=== PATIENT | male | born 1950 | race Caucasian/White ===

== ENCOUNTER 2016-07-08 07:24 | Outpatient (CLI) | payer OTHER ==
[2016-07-08 12:38] LABS: BASOPHILS # (AUTO) 0.2 10^3/uL (0.0-0.1); BASOPHILS % (AUTO) 1.3 %; EOSINOPHILS # (AUTO) 0.1 10^3/uL (0.0-0.7); EOSINOPHILS % (AUTO) 0.9 %; HCT - HEMATOCRIT 43.3 % (42.0-52.0); LYMPHOCYTES # (AUTO) 2.4 10^3/uL (1.5-3.5); MEAN CORPUSCULAR HEMOGLOBIN 33.1 pg (27.0-31.0); MEAN CORPUSCULAR HGB CONC 34.7 g/dL (32.0-36.0); MEAN CORPUSCULAR VOLUME 95.4 fL (80.0-94.0); MEAN PLATELET VOLUME 8.5 fL (7.4-11.4); MONOCYTES # (AUTO) 1.5 10^3/uL (0.0-1.0); MONOCYTES % (AUTO) 11.3 %; NEUTROPHILS % (AUTO) 68.5 %; RED BLOOD COUNT 4.54 10^6/uL (4.70-6.10); RED CELL DISTRIBUTION WIDTH 12.3 % (12.0-15.0); UNCORRECTED WHITE BLOOD COUNT 13.1 x10^3/uL; WHITE BLOOD COUNT 13.1 x10^3/uL (4.8-10.8)
[2016-07-08 12:54] LABS: ALBUMIN/GLOBULIN RATIO 1.3 (1.0-2.2); BILIRUBIN,TOTAL 0.5 mg/dL (0.2-1.0); BUN - BLOOD UREA NITROGEN 13 mg/dL (6-20); CALCIUM 9.1 mg/dL (8.5-10.3); CARBON DIOXIDE - CO2 28 mmol/L (21-32); CHLORIDE 100 mmol/L (101-111); CHOLESTEROL 155 mg/dL; CREATININE 0.7 mg/dL (0.6-1.2); GFR - MDRD 114 (>89); GLUCOSE 108 mg/dL (70-100); HDL CHOLESTEROL 52 mg/dL; LDL/HDL RATIO 1.5 (<3.6); POTASSIUM 4.4 mmol/L (3.5-5.0); SODIUM 136 mmol/L (135-145); TOTAL PROTEIN 7.2 g/dL (6.7-8.2); TRIGLYCERIDES 123 mg/dL; VLDL CHOLESTEROL 25 mg/dL
[2016-07-08 14:39] LABS: HEMOGLOBIN A1C 0.56 g/dL
== END 2016-07-08 07:25 | disposition home or self-care (01) ==
LOC: LAB.WCP 07:24
PROVIDERS: ATTEND Family Medicine
DX: I10 Essential (primary) hypertension (principal); R74.8 Abnormal levels of other serum enzymes; Z79.899 Other long term (current) drug therapy; E78.5 Hyperlipidemia, unspecified; E74.39 Other disorders of intestinal carbohydrate absorption; Z12.5 Encounter for screening for malignant neoplasm of prostate; F41.8 Other specified anxiety disorders
CPT/HCPCS: 36415; 80053; 80061; 83036; 84153; 84443; 85025

== ENCOUNTER 2016-09-09 10:43 | Outpatient (CLI) | payer OTHER | END 2016-09-09 10:44 | disposition home or self-care (01) | DX: M79.89 Other specified soft tissue disorders (principal) ==

== ENCOUNTER 2017-06-09 09:29 | Outpatient (CLI) | payer OTHER ==
--- NOTE | 2017-06-09 19:33 | XRAY Report ---
DATE OF SERVICE: 06/09/2017 TWO VIEW CHEST: 06/09/2017 CLINICAL INDICATION: Bronchitis, cough. COMPARISON: 07/09/2015 Frontal and lateral views of the chest demonstrate a normal cardiac silhouette. The lungs are hyperinflated, compatible with COPD. No focal consolidation, effusion, or pneumothorax is present. IMPRESSION: Hyperinflation, but no evidence of acute cardiopulmonary disease. TD: 06/09/2017 20:33
== END 2017-06-09 09:30 | disposition home or self-care (01) ==
LOC: DI 09:29
PROVIDERS: ATTEND Family Medicine
DX: J20.9 Acute bronchitis, unspecified (principal)
CPT/HCPCS: 71046

== ENCOUNTER 2018-03-23 07:15 | Outpatient (CLI) | payer MEDICARE, OTHER ==
[2018-03-23 19:50] LABS: BASOPHILS # (AUTO) 0.1 10^3/uL (0.0-0.1); BASOPHILS % (AUTO) 1.5 %; EOSINOPHILS # (AUTO) 0.1 10^3/uL (0.0-0.7); EOSINOPHILS % (AUTO) 1.2 %; HGB - HEMOGLOBIN 15.4 g/dL (14.0-18.0); LYMPHOCYTES # (AUTO) 1.5 10^3/uL (1.5-3.5); LYMPHOCYTES % (AUTO) 18.5 %; MEAN CORPUSCULAR HEMOGLOBIN 33.1 pg (27.0-31.0); MEAN CORPUSCULAR HGB CONC 34.4 g/dL (32.0-36.0); MEAN CORPUSCULAR VOLUME 96.1 fL (80.0-94.0); MEAN PLATELET VOLUME 8.3 fL (7.4-11.4); MONOCYTES # (AUTO) 0.9 10^3/uL (0.0-1.0); MONOCYTES % (AUTO) 10.8 %; NEUTROPHILS # (AUTO) 5.6 10^3/uL (1.5-6.6); PLT - PLATELET COUNT 253 10^3/uL (130-450); RED BLOOD COUNT 4.65 10^6/uL (4.70-6.10); WHITE BLOOD COUNT 8.2 x10^3/uL (4.8-10.8)
[2018-03-23 20:22] LABS: ALBUMIN 3.9 g/dL (3.2-5.5); ALBUMIN/GLOBULIN RATIO 1.2 (1.0-2.2); ALKALINE PHOSPHATASE 50 IU/L (42-121); ALT ALANINE AMINOTRANSFERASE 53 IU/L (10-60); AST ASPARTATE AMINOTRANSFERASE 50 IU/L (10-42); BILIRUBIN,TOTAL 0.8 mg/dL (0.2-1.0); BUN - BLOOD UREA NITROGEN 11 mg/dL (6-20); CALCIUM 9.2 mg/dL (8.5-10.3); CARBON DIOXIDE - CO2 28 mmol/L (21-32); CHLORIDE 93 mmol/L (101-111); CHOL/HDL RATIO 2.9 (<5.0); CHOLESTEROL 146 mg/dL; CREATININE 0.7 mg/dL (0.6-1.2); GFR - MDRD 113 (>89); GLUCOSE 96 mg/dL (70-100); HDL CHOLESTEROL 51 mg/dL; LDL CHOLESTEROL,CALCULATED 73 mg/dL; LDL/HDL RATIO 1.4 (<3.6); SODIUM 133 mmol/L (135-145); TOTAL PROTEIN 7.1 g/dL (6.7-8.2); VLDL CHOLESTEROL 22 mg/dL
== END 2018-03-23 07:16 | disposition home or self-care (01) ==
LOC: LAB.WCP 07:15
PROVIDERS: ATTEND Family Medicine
DX: R74.8 Abnormal levels of other serum enzymes (principal); E78.5 Hyperlipidemia, unspecified; Z12.5 Encounter for screening for malignant neoplasm of prostate; I10 Essential (primary) hypertension; F41.8 Other specified anxiety disorders
CPT/HCPCS: 36415; 80053; 80061; 84443; 85025; G0103; 83721; 84153

== ENCOUNTER 2018-11-07 08:00 | Outpatient (CLI) | payer MEDICARE, OTHER ==
[2018-11-07 14:48] LABS: BASOPHILS # (AUTO) 0.1 10^3/uL (0.0-0.1); BASOPHILS % (AUTO) 1.7 %; EOSINOPHILS # (AUTO) 0.1 10^3/uL (0.0-0.7); EOSINOPHILS % (AUTO) 1.6 %; HGB - HEMOGLOBIN 16.7 g/dL (14.0-18.0); LYMPHOCYTES # (AUTO) 2.1 10^3/uL (1.5-3.5); LYMPHOCYTES % (AUTO) 25.2 %; MEAN CORPUSCULAR HEMOGLOBIN 31.2 pg (27.0-31.0); MEAN CORPUSCULAR HGB CONC 33.8 g/dL (32.0-36.0); MEAN CORPUSCULAR VOLUME 92.2 fL (80.0-94.0); MEAN PLATELET VOLUME 8.9 fL (7.4-11.4); MONOCYTES # (AUTO) 0.9 10^3/uL (0.0-1.0); MONOCYTES % (AUTO) 10.3 %; NEUTROPHILS # (AUTO) 5.2 10^3/uL (1.5-6.6); NEUTROPHILS % (AUTO) 61.2 %; PLT - PLATELET COUNT 267 10^3/uL (130-450); RED BLOOD COUNT 5.35 10^6/uL (4.70-6.10); RED CELL DISTRIBUTION WIDTH 13.8 % (12.0-15.0); WHITE BLOOD COUNT 8.5 x10^3/uL (4.8-10.8)
[2018-11-07 14:49] LABS: ALBUMIN 4.2 g/dL (3.2-5.5); ALBUMIN/GLOBULIN RATIO 1.2 (1.0-2.2); ALKALINE PHOSPHATASE 66 IU/L (42-121); ALT ALANINE AMINOTRANSFERASE 26 IU/L (10-60); AST ASPARTATE AMINOTRANSFERASE 25 IU/L (10-42); BILIRUBIN,TOTAL 0.3 mg/dL (0.2-1.0); BUN - BLOOD UREA NITROGEN 9 mg/dL (6-20); CALCIUM 9.4 mg/dL (8.5-10.3); CARBON DIOXIDE - CO2 28 mmol/L (21-32); CHLORIDE 92 mmol/L (101-111); CHOL/HDL RATIO 3.2 (<5.0); CHOLESTEROL 161 mg/dL; CREATININE 0.7 mg/dL (0.6-1.2); GFR - MDRD 113 (>89); GLUCOSE 103 mg/dL (70-100); HDL CHOLESTEROL 50 mg/dL; LDL CHOLESTEROL,CALCULATED 89 mg/dL; LDL/HDL RATIO 1.8 (<3.6); SODIUM 134 mmol/L (135-145); TOTAL PROTEIN 7.8 g/dL (6.7-8.2); VLDL CHOLESTEROL 22 mg/dL
[2018-11-07 15:29] LABS: HB2 TOTAL 17.2 g/dL; HEMOGLOBIN A1C 0.73 g/dL
== END 2018-11-07 08:01 | disposition home or self-care (01) ==
LOC: LAB.WCP 08:00
PROVIDERS: ATTEND Family Medicine
DX: I10 Essential (primary) hypertension (principal); E78.5 Hyperlipidemia, unspecified; E74.39 Other disorders of intestinal carbohydrate absorption; F41.8 Other specified anxiety disorders; Z79.899 Other long term (current) drug therapy
CPT/HCPCS: 36415; 80053; 80061; 83036; 83721; 84443; 85025

== ENCOUNTER 2018-12-12 10:22 | Outpatient (CLI) | payer MEDICARE, OTHER ==
--- NOTE | 2018-12-12 14:22 | XRAY Report ---
Reason: LOW BACK PAIN Procedure Date: 12/12/2018 Accession Number: [id number] / [id number] Procedure: XR - Lumbar Spine 2 View CPT Code: FULL RESULT: EXAM: LUMBOSACRAL SPINE RADIOGRAPHY EXAM DATE: 12/12/2018 11:01 AM. CLINICAL HISTORY: Low back pain. Muscle weakness in legs. Pain on left side. COMPARISONS: None. TECHNIQUE: 3 views. FINDINGS: Alignment: Mild levoscoliosis of the lower lumbar spine. No spondylolisthesis. Bones: Five [id number] lumbar vertebral bodies are present. No acute fracture or bony lesion. Multifocal degenerative osteophyte formation. Disks: Mild multilevel disk space narrowing throughout the lumbar spine greatest at L5-S1. Facets: Mild to moderate lumbar facet arthropathy. Sacroiliac Joints: Mild degenerative changes. Soft Tissues: Vascular calcifications. Surgical clips are seen in the upper pelvis. Lung bases are clear. IMPRESSION: 1. Mild multilevel intervertebral disk degenerative changes of lumbar spine. 2. Mild to moderate lumbar facet arthropathy. RADIA
== END 2018-12-12 10:23 | disposition home or self-care (01) ==
LOC: DI 10:22
PROVIDERS: ATTEND Physician Assistant Medical
DX: M51.36 Other intervertebral disc degeneration, lumbar region (principal); M51.37 Other intervertebral disc degeneration, lumbosacral region; M47.816 Spondylosis without myelopathy or radiculopathy, lumbar region
CPT/HCPCS: 72100

== ENCOUNTER 2019-02-22 08:00 | Outpatient (CLI) | payer MEDICARE, OTHER | END 2019-02-22 23:59 | disposition home or self-care (01) | LOC: LAB.WCP 08:00 | PROVIDERS: ATTEND Physician Assistant Medical | DX: R20.9 Unspecified disturbances of skin sensation (principal) | CPT/HCPCS: 36415; 82607 ==

== ENCOUNTER 2019-03-03 09:28 | Outpatient (CLI) | payer MEDICARE, OTHER ==
--- NOTE | 2019-03-04 02:53 | MRI Report ---
Reason: LOW BACK PAIN Procedure Date: 03/03/2019 Accession Number: [id number] / [id number] Procedure: MRI - Lumbar Spine W/O CPT Code: FULL RESULT: EXAM: MRI LUMBAR SPINE WITHOUT CONTRAST EXAM DATE: 03/03/2019 10:21 AM. CLINICAL HISTORY: Low back pain. Bilateral leg weakness. COMPARISON: LUMBAR SPINE 2 VIEW 12/12/2018 10:48 AM. TECHNIQUE: Multiplanar, multisequence T1-weighted and fluid-sensitive sequences of the lumbar spine from T12 to S1 without contrast. Other: None. FINDINGS: Spinal Canal: The conus terminates at L1-L2. The visualized spinal cord is normal in signal. There is prominent epidural fat throughout the lumbar spinal canal. This is most prominent from the L3 level to the sacrum. The prominent epidural fat is associated with moderate flattening of the thecal sac in the AP dimension. This is most pronounced from L4-L5 through L5-S1. In addition, the lumbar spinal canal appears congenitally small and the PD dimension. Alignment: No spondylolisthesis. There is mild left convexity lumbar curvature suggesting mild scoliosis. Bone Marrow: Five uph-pak-[id number] lumbar vertebral bodies are assumed. No gross fractures or bone lesions. No bone marrow replacement. Disk Levels/Facets: T12-L1: Unremarkable on sagittal images. L1-L2: No disk herniation or significant bulging. Mild facet hypertrophy. No canal or foraminal stenosis. L2-L3: Mild disk desiccation. No disk herniation or significant bulging. Mild bilateral facet hypertrophy. No significant canal or foraminal stenosis. L3-L4: Mild anterior spurring and mild disk narrowing and desiccation. There is mild posterior spurring and disk bulging effacing the ventral thecal sac. Mild bilateral facet hypertrophy. No significant canal or foraminal stenosis. L4-L5: Mild anterior spurring and mild to moderate disk narrowing and desiccation. There is posterior spurring and disk bulging. There is a superimposed broad-based central disk protrusion measuring 4 mm in AP extent flattening the ventral thecal sac. There is mild to moderate bilateral facet hypertrophy. These factors produce a mild degree of central canal stenosis. There is moderate right foraminal stenosis. Left neural foramen appears adequate. L5-S1: There is mild disk narrowing and desiccation. There is a mild disk bulge and mild to moderate bilateral facet hypertrophy. No significant central canal stenosis. There is mild to moderate left foraminal stenosis. Right neural foramen appears adequate. Musculature: Unremarkable. Other: The partially visualized retroperitoneum is unremarkable. IMPRESSION: 1. There is multilevel lumbar spondylosis and degenerative disk disease/disk bulging superimposed upon a congenitally small lumbar spinal canal. 2. At the L4-L5 level, there is spondylosis and disk bulging with a superimposed broad-based 4 mm central disk protrusion which flattens the ventral thecal sac. This results in a mild degree of central canal stenosis. There is also moderate right foraminal stenosis. There is no significant canal stenosis at the remaining lumbar levels. There is mild to moderate left foraminal stenosis at L5-S1. 3. There is prominent epidural fat throughout the lumbar spinal canal suggesting epidural lipomatosis. This is most prominent at the L4-S1 levels where epidural fat produces moderate flattening of the thecal sac in the AP dimension. Comment: The following findings are so common in adults without low back pain that while we report their presence, they must be interpreted with caution and in the context of the clinical situation. (Reference Marcok et al, Spine 2001) Prevalence of findings in patients without low back pain: Disk degeneration (any evidence): 92% Disk desiccation/T2 signal loss: 83% Disk height loss: 56% Disk bulge: 64% Disk protrusion: 32% Annular tear/high intensity zone: 38% RADIA
== END 2019-03-03 09:29 | disposition home or self-care (01) ==
LOC: DI 09:28
PROVIDERS: ATTEND Physician Assistant Medical
DX: M51.36 Other intervertebral disc degeneration, lumbar region (principal); M48.061 Spinal stenosis, lumbar region without neurogenic claudication; M51.26 Other intervertebral disc displacement, lumbar region; M47.816 Spondylosis without myelopathy or radiculopathy, lumbar region; I73.9 Peripheral vascular disease, unspecified
CPT/HCPCS: 72148; 93922

== ENCOUNTER 2019-09-26 15:51 | Outpatient (CLI) | payer MEDICARE, OTHER | END 2019-09-26 15:52 | disposition home or self-care (01) | LOC: COV 15:51 | PROVIDERS: ATTEND Family Medicine | DX: R05 Cough (principal); R06.02 Shortness of breath | CPT/HCPCS: 81599 ==

== ENCOUNTER 2020-03-03 08:15 | Outpatient (CLI) | payer MEDICARE, OTHER ==
[2020-03-03 13:23] LABS: BASOPHILS # (AUTO) 0.2 10^3/uL (0.0-0.1); BASOPHILS % (AUTO) 1.6 %; EOSINOPHILS # (AUTO) 0.2 10^3/uL (0.0-0.7); EOSINOPHILS % (AUTO) 2.6 %; HGB - HEMOGLOBIN 15.7 g/dL (14.0-18.0); LYMPHOCYTES % (AUTO) 21.7 %; MEAN CORPUSCULAR HGB CONC 32.8 g/dL (32.0-36.0); MEAN CORPUSCULAR VOLUME 91.4 fL (80.0-94.0); MEAN PLATELET VOLUME 9.8 fL (7.4-11.4); NEUTROPHILS # (AUTO) 5.9 10^3/uL (1.5-6.6); NEUTROPHILS % (AUTO) 62.7 %; PLT - PLATELET COUNT 321 10^3/uL (130-450); RED BLOOD COUNT 5.24 10^6/uL (4.70-6.10); RED CELL DISTRIBUTION WIDTH 12.5 % (12.0-15.0); WHITE BLOOD COUNT 9.4 x10^3/uL (4.8-10.8)
[2020-03-03 14:00] LABS: ALBUMIN 4.4 g/dL (3.2-5.5); ALBUMIN/GLOBULIN RATIO 1.3 (1.0-2.2); ALKALINE PHOSPHATASE 76 IU/L (42-121); ALT ALANINE AMINOTRANSFERASE 25 IU/L (10-60); AST ASPARTATE AMINOTRANSFERASE 17 IU/L (10-42); BILIRUBIN,TOTAL 0.7 mg/dL (0.2-1.0); BUN - BLOOD UREA NITROGEN 12 mg/dL (6-20); CALCIUM 9.5 mg/dL (8.5-10.3); CARBON DIOXIDE - CO2 33 mmol/L (21-32); CHLORIDE 94 mmol/L (101-111); CHOL/HDL RATIO 3.4 (<5.0); CHOLESTEROL 150 mg/dL; CREATININE 0.7 mg/dL (0.6-1.2); GLUCOSE 108 mg/dL (70-100); HDL CHOLESTEROL 44 mg/dL; LDL CHOLESTEROL,CALCULATED 89 mg/dL; SODIUM 135 mmol/L (135-145); TOTAL PROTEIN 7.7 g/dL (6.7-8.2); VLDL CHOLESTEROL 17 mg/dL
== END 2020-03-03 23:59 | disposition home or self-care (01) ==
LOC: LAB.WCP 08:15
PROVIDERS: ATTEND Physician Assistant Medical
DX: E78.5 Hyperlipidemia, unspecified (principal); I10 Essential (primary) hypertension; Z12.5 Encounter for screening for malignant neoplasm of prostate
CPT/HCPCS: 36415; 80053; 80061; 85025; G0103; 83721; 84153

== ENCOUNTER 2020-03-20 10:15 | Outpatient (CLI) | payer MEDICARE, OTHER ==
[2020-03-20 12:15] LABS: BASOPHILS # (AUTO) 0.2 10^3/uL (0.0-0.1); BASOPHILS % (AUTO) 1.7 %; EOSINOPHILS # (AUTO) 0.2 10^3/uL (0.0-0.7); HGB - HEMOGLOBIN 15.6 g/dL (14.0-18.0); LYMPHOCYTES # (AUTO) 2.6 10^3/uL (1.5-3.5); MEAN CORPUSCULAR HEMOGLOBIN 30.4 pg (27.0-31.0); MEAN CORPUSCULAR HGB CONC 33.8 g/dL (32.0-36.0); MEAN CORPUSCULAR VOLUME 89.7 fL (80.0-94.0); MEAN PLATELET VOLUME 9.6 fL (7.4-11.4); MONOCYTES # (AUTO) 1.1 10^3/uL (0.0-1.0); NEUTROPHILS # (AUTO) 5.6 10^3/uL (1.5-6.6); PLT - PLATELET COUNT 327 10^3/uL (130-450); RED BLOOD COUNT 5.14 10^6/uL (4.70-6.10); RED CELL DISTRIBUTION WIDTH 12.3 % (12.0-15.0); WHITE BLOOD COUNT 9.6 x10^3/uL (4.8-10.8)
[2020-03-20 12:19] LABS: ALBUMIN 4.1 g/dL (3.2-5.5); ALBUMIN/GLOBULIN RATIO 1.2 (1.0-2.2); BILIRUBIN,TOTAL 0.6 mg/dL (0.2-1.0); CALCIUM 9.3 mg/dL (8.5-10.3); CREATININE 0.7 mg/dL (0.6-1.2); TOTAL PROTEIN 7.6 g/dL (6.7-8.2)
== END 2020-03-20 23:59 | disposition home or self-care (01) ==
LOC: LAB.WCP 10:15
PROVIDERS: ATTEND Family Medicine
DX: K57.92 Diverticulitis of intestine, part unspecified, without perforation or abscess without bleeding (principal)
CPT/HCPCS: 36415; 80053; 82150; 83690; 85025

== ENCOUNTER 2020-06-19 08:00 | Outpatient (CLI) | payer MEDICARE, OTHER ==
[2020-06-19 12:39] LABS: CREATININE 0.7 mg/dL (0.6-1.2)
== END 2020-06-19 23:59 | disposition home or self-care (01) ==
LOC: LAB.WCP 08:00
PROVIDERS: ATTEND Surgery
DX: I74.5 Embolism and thrombosis of iliac artery (principal); I70.213 Atherosclerosis of native arteries of extremities with intermittent claudication, bilateral legs
CPT/HCPCS: 36415; 82565

== ENCOUNTER 2021-04-13 07:31 | Outpatient (CLI) | payer MEDICARE, OTHER ==
[2021-04-13 12:15] LABS: BASOPHILS # (AUTO) 0.1 10^3/uL (0.0-0.1); BASOPHILS % (AUTO) 1.5 %; EOSINOPHILS # (AUTO) 0.1 10^3/uL (0.0-0.7); EOSINOPHILS % (AUTO) 1.6 %; HCT - HEMATOCRIT 47.8 % (42.0-52.0); HGB - HEMOGLOBIN 16.1 g/dL (14.0-18.0); LYMPHOCYTES # (AUTO) 1.9 10^3/uL (1.5-3.5); LYMPHOCYTES % (AUTO) 22.3 %; MEAN CORPUSCULAR HEMOGLOBIN 30.2 pg (27.0-31.0); MEAN CORPUSCULAR HGB CONC 33.7 g/dL (32.0-36.0); MEAN CORPUSCULAR VOLUME 89.7 fL (80.0-94.0); MEAN PLATELET VOLUME 9.6 fL (7.4-11.4); MONOCYTES # (AUTO) 0.9 10^3/uL (0.0-1.0); MONOCYTES % (AUTO) 10.6 %; NEUTROPHILS # (AUTO) 5.5 10^3/uL (1.5-6.6); NEUTROPHILS % (AUTO) 63.8 %; PLT - PLATELET COUNT 294 10^3/uL (130-450); RED BLOOD COUNT 5.33 10^6/uL (4.70-6.10); RED CELL DISTRIBUTION WIDTH 12.2 % (12.0-15.0); WHITE BLOOD COUNT 8.6 x10^3/uL (4.8-10.8)
[2021-04-13 12:22] LABS: ALBUMIN 4.2 g/dL (3.2-5.5); ALBUMIN/GLOBULIN RATIO 1.3 (1.0-2.2); ALKALINE PHOSPHATASE 76 IU/L (42-121); ALT ALANINE AMINOTRANSFERASE 27 IU/L (10-60); AST ASPARTATE AMINOTRANSFERASE 20 IU/L (10-42); BUN - BLOOD UREA NITROGEN 12 mg/dL (6-20); CALCIUM 9.3 mg/dL (8.5-10.3); CARBON DIOXIDE - CO2 31 mmol/L (21-32); CHLORIDE 92 mmol/L (101-111); CHOL/HDL RATIO 4.4 (<5.0); CHOLESTEROL 157 mg/dL; CREATININE 0.7 mg/dL (0.6-1.2); GFR - MDRD 112 (>89); GLUCOSE 114 mg/dL (70-100); HDL CHOLESTEROL 36 mg/dL; LDL CHOLESTEROL,CALCULATED 104 mg/dL; LDL/HDL RATIO 2.9 (<3.6); POTASSIUM 3.9 mmol/L (3.5-5.0); SODIUM 131 mmol/L (135-145); TOTAL PROTEIN 7.5 g/dL (6.7-8.2); TRIGLYCERIDES 87 mg/dL; VLDL CHOLESTEROL 17 mg/dL
== END 2021-04-13 23:59 | disposition home or self-care (01) ==
LOC: LAB.WCP 07:31
PROVIDERS: ATTEND Physician Assistant Medical
DX: J44.9 Chronic obstructive pulmonary disease, unspecified (principal); Z12.5 Encounter for screening for malignant neoplasm of prostate; E78.5 Hyperlipidemia, unspecified
CPT/HCPCS: 36415; 80053; 80061; 85025; G0103; 83721; 84153

== ENCOUNTER 2021-08-05 08:40 | Outpatient (CLI) | payer MEDICARE, OTHER ==
--- NOTE | 2021-08-05 15:12 | Ultrasound Report ---
PROCEDURE: Duplex Lwr Ext Arterial Bilat INDICATIONS: ATHEROSCLEROSIS OF [place] ARTERIES OF EXTREMITY TECHNIQUE: Color and pulse Doppler interrogation was performed of both lower extremity arterial systems, with im age documentation. COMPARISON: 03/03/2019 ankle-brachial index FINDINGS: Right lower extremity: Common femoral artery: 285 cm/sec, with monophasic flow. Deep femoral artery: 109 cm/sec, with monophasic flow. Proximal superficial femoral artery: No flow Mid superficial femoral artery: No flow Distal superficial femoral artery: 25 cm/sec, with monophasic flow. Popliteal artery: 35 cm/sec, with monophasic flow. Posterior tibial artery: 22 cm/sec, with monophasic flow. Anterior tibial artery/dorsalis pedis: 26/10 cm/sec, with monophasic flow. Craig-scale imaging description: The right proximal and mid SFA are occluded. Distally there is recon stitution of flow with low amplitude monophasic waveforms. Left lower extremity: Common femoral artery: 327 cm/sec, with biphasic flow. Deep femoral artery: 62 cm/sec, with biphasic flow. Proximal superficial femoral artery: 87 cm/sec, with triphasic flow. Mid superficial femoral artery: 104 cm/sec, with triphasic flow. Distal superficial femoral artery: 51 cm/sec, with triphasic flow. Popliteal artery: 53 cm/sec, with triphasic flow. Posterior tibial artery: 33 cm/sec, with biphasic flow. Anterior tibial artery/dorsalis pedis: 66/21 cm/sec, with biphasic flow. Craig-scale imaging description: A left SFA stent in the proximal and mid segment is patent. IMPRESSION: 1. 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 2. Elevated velocity in the left [employer] consistent with proximal stenosis greater than 50%. 3. The left SFA stent in the proximal and mid segment is patent. Reviewed by: Don De La Fuente on 08/05/2021 3:11 PM PST Approved by: Don De La Fuente on 08/05/2021 3:11 PM PST Station ID: [id number]
--- NOTE | 2021-08-05 15:17 | Ultrasound Report ---
PROCEDURE: Ankle Brachial Index INDICATIONS: INTERMITTENT CLAUDICATION TECHNIQUE: Ankle-brachial indices were obtained bilaterally and recorded. COMPARISONS: None. FINDINGS: Right ankle brachial index (MIMI): 0.57 Left ankle brachial index (MIMI): 0.82 Healing potential: Ankle pressures >55 mm Hg in non-diabetics and >80 mm Hg in diabetics are likely to achieve primary h ealing of ischemic foot ulcers. Toe pressures >30 mm Hg are likely to achieve primary healing of ischemic foot ulcers, toe or transme tatarsal amputations. IMPRESSION: 1. Right MIMI of 0.57 consistent with moderate atherosclerotic disease. 2. Left MIMI of 0.82 consistent with mild atherosclerotic disease. Reviewed by: Don De La Fuente on 08/05/2021 3:15 PM PST Approved by: Don De La Fuente on 08/05/2021 3:15 PM PST Station ID: [id number]
== END 2021-08-05 08:41 | disposition home or self-care (01) ==
LOC: DI 08:40
PROVIDERS: ATTEND Physician Assistant Medical
DX: I70.213 Atherosclerosis of native arteries of extremities with intermittent claudication, bilateral legs (principal)
CPT/HCPCS: 93922; 93925

== ENCOUNTER 2022-07-14 09:11 | Outpatient (CLI) | payer MEDICARE, OTHER ==
--- NOTE | 2022-07-14 15:58 | CT Report ---
PROCEDURE: Low Dose Lung Cancer Screen INDICATIONS: TOBACCO USER TECHNIQUE: Noncontrast low-dose axial images were acquired from the pulmonary apices to the posterior costophren ic angles. Multiplanar MIP reformats were then reconstructed. For radiation dose reduction, the follo wing was used: automated exposure control, adjustment of mA and/or kV according to patient size. COMPARISON: None. FINDINGS: Image quality: Excellent. Lungs and pleura: Pulmonary nodules as follows: -1.5 cm solid nodule with irregular margins, lingula (4/193). -0.4 cm solid nodule, lateral right upper lobe (4/91). -0.7 cm solid nodule, right lung apex (4/33). Mediastinum: Heart size is normal. No pericardial effusion. No mediastinal adenopathy by size crit eria. Thoracic aorta and central pulmonary arteries are normal in size. Esophagus is normal in jayla yehuda. No hiatal hernia. Marked coronary calcifications for age. Bones and chest wall: No suspicious bony lesions. No vertebral body compression fractures. No axil sakina or supraclavicular adenopathy by size criteria. The thyroid is normal in size and there are no incidental findings. Abdomen: Visualized upper abdomen solid organs and bowel loops appear normal in the absence of contr ast. IMPRESSION: 1. Lung-RADS 4b,S - very suspicious. Recommend pulmonology consultation and/or PET/CT versus sampling . 2. Marked coronary artery calcifications for age. Consider cardiology referral. CLINICAL RECOMMENDATION STATEMENTS: In patients <35 years with an ITN detected on CT, MRI, or extrathyroidal ultrasound, the Committee re commends further evaluation with dedicated thyroid ultrasound if the nodule is "e1 cm and has no susp icious imaging features, and if the patient has normal life expectancy. In patients "e35 years with an ITN detected on CT, MRI, or extrathyroidal ultrasound, the Committee r ecommends further evaluation with dedicated thyroid ultrasound if the nodule is "e1.5 cm and has no s uspicious imaging features, and if the patient has normal life expectancy. (ACR, 2014) Reviewed by: Jomar Franklin on 07/14/2022 3:56 PM PST Approved by: Jomar Franklin on 07/14/2022 3:56 PM PST Station ID: [id number]
== END 2022-07-14 09:12 | disposition home or self-care (01) ==
LOC: DI 09:11
PROVIDERS: ATTEND Physician Assistant Medical
DX: Z12.2 Encounter for screening for malignant neoplasm of respiratory organs (principal); F17.210 Nicotine dependence, cigarettes, uncomplicated; R91.8 Other nonspecific abnormal finding of lung field; I25.10 Atherosclerotic heart disease of native coronary artery without angina pectoris; Z13.6 Encounter for screening for cardiovascular disorders

== ENCOUNTER 2022-07-14 09:14 | Outpatient (CLI) | payer MEDICARE, OTHER ==
--- NOTE | 2022-07-14 11:21 | Ultrasound Report ---
PROCEDURE: Aorta Screening INDICATIONS: TOBACCO USER TECHNIQUE: Real time scanning was performed of the aorta and iliac arteries, with image documentatio n. COMPARISON: None. FINDINGS: Aorta: Proximal aortic diameter measures 2.4 x 2.5 cm. Mid-aorta measures 1.7 x 1.9 cm. Distal aor tic diameter is 1.8 x 1.9 cm. Calcified atherosclerotic plaque is noted in the aorta. Iliac arteries: Right common iliac artery measures 1.2 x 1.2 cm. Left common iliac artery measures 1.1 x 1.1 cm. IMPRESSION: No sonographic evidence of abdominal aortic aneurysm. Reviewed by: Dirk Nolan MD on 07/14/2022 11:20 AM PST Approved by: Dirk Nolan MD on 07/14/2022 11:20 AM PST Station ID: [id number]
== END 2022-07-14 09:15 | disposition home or self-care (01) ==
LOC: DI 09:14
PROVIDERS: ATTEND Physician Assistant Medical
DX: Z13.6 Encounter for screening for cardiovascular disorders (principal); Z72.0 Tobacco use

== ENCOUNTER 2022-07-30 06:49 | Outpatient (CLI) | payer MEDICARE, OTHER ==
[2022-07-30] MEDS ORDERED: LACTATED RINGERS 1,000 ML IV ONE ×2 (07:00→14:38)
[2022-07-30 07:50] LABS: PT - PROTHROMBIN TIME 11.7 secs (9.9-12.6)
[2022-07-30 07:58] LABS: PARTIAL THROMBOPLASTIN TIME 29.4 secs (24.9-33.3)
[2022-07-30] MEDS ORDERED: LIDOCAINE-MPF 1% 5 ML VIAL ONE ×2 (07:59→09:01)
[2022-07-30] MEDS ORDERED: fentaNYL 100 MCG/2 ML VIAL ONE (08:14)
[2022-07-30] MEDS ORDERED: MIDAZOLAM 2 MG/2 ML VIAL ONE (08:15)
--- NOTE | 2022-07-30 10:01 | XRAY Report ---
PROCEDURE: Post Thoracentesis 1V CXR INDICATIONS: Post lung bx TECHNIQUE: One view of the chest was acquired. COMPARISON: None. FINDINGS: Surgical changes and devices: None. Lungs and pleura: No appreciable pneumothorax. Hazy left lower lung zone airspace opacity, presumabl y the pulmonary nodule. Mediastinum: Mediastinal contours appear normal. Heart size is normal. Bones and chest wall: No suspicious bony lesions. Overlying soft tissues appear unremarkable. IMPRESSION: No appreciable pneumothorax. Reviewed by: Jomar Franklin on 07/30/2022 9:59 AM PST Approved by: Jomar Franklin on 07/30/2022 9:59 AM [facility] Station ID: [id number]
[2022-07-30] MEDS ORDERED: HYDROcod/ACETAM 5/325 MG TABLET ONE (10:15)
--- NOTE | 2022-07-30 11:54 | XRAY Report ---
PROCEDURE: Post Thoracentesis 1V CXR INDICATIONS: Post lung bx TECHNIQUE: One view of the chest was acquired. COMPARISON: None. FINDINGS: Surgical changes and devices: None. Lungs and pleura: Small left pneumothorax, new from prior. Convex appearance of the diaphragm. Mediastinum: Mediastinal contours appear normal. Heart size is normal. Midline. Bones and chest wall: No suspicious bony lesions. Overlying soft tissues appear unremarkable. IMPRESSION: Small left pneumothorax, new from prior. No evidence of tension. Reviewed by: Jomar Franklin on 07/30/2022 11:53 AM [facility] Approved by: Jomar Franklin on 07/30/2022 11:53 AM [facility] Station ID: [id number]
--- NOTE | 2022-07-30 12:25 | CT Report ---
PROCEDURE: LT LUNG BX PERC Sedation analgesia for 45 minutes. INDICATIONS: LEFT LUNG MASS TECHNIQUE: The indications, alternatives, benefits, risks, and possible complications of the procedure were comm unicated to the patient. Informed written consent from the patient was obtained and placed in the art. Continuous EKG and hemodynamic monitoring was started by trained personnel. For radiation dose reduction, the following was used: automated exposure control, adjustment of mA and/or kV according to patient size. The patient was brought to the CT suite and hockey scout spiral CT imaging was performed with localization g rid. The appropriate site for percutaneous access to the biopsy target was marked, was prepped and d raped sterilely, and was infused with local anaesthesia. Under CT guidance, a core biopsy trocar and needle set was advanced to the biopsy target, and specimen(s) were obtained. The trocar and needle were then removed, and the patient was sent for post-procedure monitoring. COMPARISON: CT 07/14/2022 FINDINGS: Biopsy site: Left upper lobe Needle: 20 gauge biopsy needle with introducer trocar. Number of passes: 4 Medications: 1% lidocaine for local anaesthesia. IV Fentanyl and Versed for conscious sedation for 45 minutes (see nursing record). Complications: Small pneumothorax, which will be followed with serial radiographs. IMPRESSION: Successful CT-guided biopsy of the left upper lobe nodule. Reviewed by: Jomar Franklin on 07/30/2022 12:23 PM PST Approved by: Jomar Franklin on 07/30/2022 12:23 PM PST Station ID: [id number]
[2022-07-30] MEDS ORDERED: LIDOCAINE-MPF 1% 5 ML VIAL SUBQ ONE (13:41)
--- NOTE | 2022-07-30 13:58 | XRAY Report ---
PROCEDURE: Post Thoracentesis 1V CXR INDICATIONS: 4 hr post lung bx TECHNIQUE: One view of the chest was acquired. COMPARISON: Same day x-rays. FINDINGS: Surgical changes and devices: None. Lungs and pleura: Interval decrease in size of the small left apical pneumothorax. Similar appearanc e of the left lower lung zone nodule. No evidence of tension. Mediastinum: Mediastinal contours appear normal. Heart size is normal. Bones and chest wall: No suspicious bony lesions. Overlying soft tissues appear unremarkable. IMPRESSION: Interval decrease in size of the small left apical pneumothorax. No evidence of tension. Reviewed by: Jomar Franklin on 07/30/2022 1:56 PM PST Approved by: Jomar Franklin on 07/30/2022 1:56 PM PST Station ID: [id number]
[2022-07-30 14:16] VITALS: BP 170/90
== END 2022-07-30 06:50 | disposition home or self-care (01) ==
LOC: DI 06:49
PROVIDERS: ATTEND Physician Assistant Medical
DX: J84.10 Pulmonary fibrosis, unspecified (principal); J95.88 Other intraoperative complications of respiratory system, not elsewhere classified; Z01.812 Encounter for preprocedural laboratory examination; F17.200 Nicotine dependence, unspecified, uncomplicated
CPT/HCPCS: 32408; 36415; 85049; 85610; 85730; A9270; J7120

== ENCOUNTER 2022-08-17 08:23 | Outpatient (CLI) | payer MEDICARE, OTHER ==
[2022-08-17 12:04] LABS: BASOPHILS # (AUTO) 0.2 10^3/uL (0.0-0.1); BASOPHILS % (AUTO) 2.2 %; EOSINOPHILS # (AUTO) 0.2 10^3/uL (0.0-0.7); EOSINOPHILS % (AUTO) 2.2 %; HCT - HEMATOCRIT 44.8 % (42.0-52.0); HGB - HEMOGLOBIN 15.4 g/dL (14.0-18.0); LYMPHOCYTES % (AUTO) 20.5 %; MEAN CORPUSCULAR HEMOGLOBIN 30.6 pg (27.0-31.0); MEAN CORPUSCULAR HGB CONC 34.4 g/dL (32.0-36.0); MEAN CORPUSCULAR VOLUME 88.9 fL (80.0-94.0); MEAN PLATELET VOLUME 9.5 fL (7.4-11.4); MONOCYTES # (AUTO) 1.2 10^3/uL (0.0-1.0); MONOCYTES % (AUTO) 12.2 %; NEUTROPHILS % (AUTO) 62.7 %; PLT - PLATELET COUNT 366 10^3/uL (130-450); RED BLOOD COUNT 5.04 10^6/uL (4.70-6.10); RED CELL DISTRIBUTION WIDTH 12.5 % (12.0-15.0); WHITE BLOOD COUNT 9.6 x10^3/uL (4.8-10.8)
[2022-08-17 12:31] LABS: ALBUMIN/GLOBULIN RATIO 1.1 (1.0-2.2); ALKALINE PHOSPHATASE 64 IU/L (42-121); ALT ALANINE AMINOTRANSFERASE 23 IU/L (10-60); AST ASPARTATE AMINOTRANSFERASE 19 IU/L (10-42); BILIRUBIN,TOTAL 0.5 mg/dL (0.2-1.0); BUN - BLOOD UREA NITROGEN 13 mg/dL (6-20); CARBON DIOXIDE - CO2 31 mmol/L (21-32); CHLORIDE 93 mmol/L (101-111); CHOL/HDL RATIO 4.4 (<5.0); CHOLESTEROL 151 mg/dL; CREATININE 0.8 mg/dL (0.6-1.2); GFR - MDRD 96 (>89); GLUCOSE 112 mg/dL (70-100); HDL CHOLESTEROL 34 mg/dL; LDL CHOLESTEROL,CALCULATED 96 mg/dL; LDL/HDL RATIO 2.8 (<3.6); POTASSIUM 3.6 mmol/L (3.5-5.0); SODIUM 135 mmol/L (135-145); TOTAL PROTEIN 7.6 g/dL (6.7-8.2); TRIGLYCERIDES 106 mg/dL; VLDL CHOLESTEROL 21 mg/dL
[2022-08-17 12:35] LABS: ESTIMATED AVERAGE GLUCOSE 128 mg/dL (70-100); HEMOGLOBIN A1c% 6.1 % (4.27-6.07)
== END 2022-08-17 08:24 | disposition home or self-care (01) ==
LOC: LAB.N 08:23
PROVIDERS: ATTEND Physician Assistant Medical
DX: I10 Essential (primary) hypertension (principal); E74.39 Other disorders of intestinal carbohydrate absorption; Z12.5 Encounter for screening for malignant neoplasm of prostate; J98.4 Other disorders of lung
CPT/HCPCS: 36415; 80053; 80061; 83036; 85025; G0103; 83721; 84153

== ENCOUNTER 2022-08-17 10:27 | Outpatient (CLI) | payer MEDICARE, OTHER ==
--- NOTE | 2022-08-17 12:44 | Ultrasound Report ---
PROCEDURE: Duplex Ext Veins Right INDICATIONS: RLE VENOUS INSUFFICIENCY TECHNIQUE: Real-time imaging, as well as color and pulse Doppler interrogation, were performed of the lower extr emity deep veins from the inguinal ligament to the popliteal fossa. COMPARISON: None. FINDINGS: The deep veins are normally compressible, and free of intraluminal thrombus. Color and pu lse Doppler demonstrate normal phasic intraluminal flow. There is normal augmentation response to di stal compression maneuver. IMPRESSION: No evidence of DVT in visualized right lower extremity veins. Reviewed by: Antonio Byers MD on 08/17/2022 11:43 AM [facility] Approved by: Antonio Byers MD on 08/17/2022 11:43 AM [facility] Station ID: [id number]
--- NOTE | 2022-08-17 13:28 | Ultrasound Report ---
PROCEDURE: Duplex Lwr Ext Arterial Bilat INDICATIONS: VENOUS INSUFFICIENCY TECHNIQUE: Color and pulse Doppler interrogation was performed of both lower extremity arterial systems, with im age documentation. COMPARISON: Arterial duplex of the bilateral lower extremities dated 08/05/2021 FINDINGS: Right lower extremity: Common femoral artery: 26.4 cm/sec, with monophasic flow. Deep femoral artery: 5.5 cm/sec, with monophasic flow. Proximal superficial femoral artery: Occluded Mid superficial femoral artery: Occluded Distal superficial femoral artery: Occluded. Popliteal artery: 20.2 cm/sec, with monophasic flow. Posterior tibial artery: 20.3 cm/sec, with monophasic flow. Anterior tibial artery/dorsalis pedis: 24.0 cm/sec, with monophasic flow. Craig-scale imaging description: The SFA is occluded throughout its course. An endovascular stent is p resent throughout the occluded vessel. There is monophasic reconstituted flow likely via collaterals at the popliteal artery. Left lower extremity: Common femoral artery: 85 cm/sec, with biphasic flow. Deep femoral artery: 120.7 cm/sec, with triphasic flow. Proximal superficial femoral artery: 106.1 cm/sec, with biphasic flow. Mid superficial femoral artery: 175.1 cm/sec, with biphasic flow. Distal superficial femoral artery: 85.4 cm/sec, with biphasic flow. Popliteal artery: 69.0 cm/sec, with biphasic flow. Posterior tibial artery: 59.3 cm/sec, with biphasic flow. Anterior tibial artery/dorsalis pedis: 78.9 cm/sec, with triphasic flow. Craig-scale imaging description: Dense atheromatous plaque and calcifications is present within the m idportion of the left SFA stent. This likely represents a focal hemodynamically significant stenosis. IMPRESSION: 1. Occluded right SFA throughout the SFA stent. 2. Reconstituted flow via collaterals within the right popliteal artery. 3. Patent left SFA stent with a focal hemodynamically significant stenosis in the midportion. Reviewed by: Janneth Melo MD on 08/17/2022 1:26 PM PDT Approved by: Janneth Melo MD on 08/17/2022 1:26 PM PDT Station ID: [id number]
== END 2022-08-17 10:28 | disposition home or self-care (01) ==
LOC: DI 10:27
PROVIDERS: ATTEND Physician Assistant Medical
DX: I87.2 Venous insufficiency (chronic) (peripheral) (principal); I77.1 Stricture of artery; Z95.828 Presence of other vascular implants and grafts; I10 Essential (primary) hypertension; E74.39 Other disorders of intestinal carbohydrate absorption; Z12.5 Encounter for screening for malignant neoplasm of prostate; J98.4 Other disorders of lung
CPT/HCPCS: 36415; 80053; 80061; 83036; 85025; 93925; 93971; G0103; 83721; 84153

== ENCOUNTER 2023-08-10 09:24 | Outpatient (CLI) | payer MEDICARE, OTHER ==
[2023-08-10 11:36] LABS: BASOPHILS # (AUTO) 0.1 10^3/uL (0.0-0.1); BASOPHILS % (AUTO) 1.3 %; EOSINOPHILS # (AUTO) 0.1 10^3/uL (0.0-0.7); EOSINOPHILS % (AUTO) 1.3 %; HCT - HEMATOCRIT 45.4 % (42.0-52.0); HGB - HEMOGLOBIN 15.1 g/dL (14.0-18.0); LYMPHOCYTES # (AUTO) 1.8 10^3/uL (1.5-3.5); MEAN CORPUSCULAR HEMOGLOBIN 29.5 pg (27.0-31.0); MEAN CORPUSCULAR HGB CONC 33.3 g/dL (32.0-36.0); MEAN CORPUSCULAR VOLUME 88.8 fL (80.0-94.0); MEAN PLATELET VOLUME 9.5 fL (7.4-11.4); MONOCYTES % (AUTO) 9.8 %; NEUTROPHILS # (AUTO) 6.7 10^3/uL (1.5-6.6); NEUTROPHILS % (AUTO) 69.3 %; PLT - PLATELET COUNT 313 10^3/uL (130-450); RED BLOOD COUNT 5.11 10^6/uL (4.70-6.10); RED CELL DISTRIBUTION WIDTH 12.1 % (12.0-15.0); WHITE BLOOD COUNT 9.7 x10^3/uL (4.8-10.8)
[2023-08-10 12:49] LABS: ALBUMIN 4.3 g/dL (3.2-5.5); ALBUMIN/GLOBULIN RATIO 1.5 (1.0-2.2); ALKALINE PHOSPHATASE 79 IU/L (42-121); ALT ALANINE AMINOTRANSFERASE 18 IU/L (10-60); AST ASPARTATE AMINOTRANSFERASE 16 IU/L (10-42); BILIRUBIN,TOTAL 0.5 mg/dL (0.2-1.0); BUN - BLOOD UREA NITROGEN 13 mg/dL (6-20); CALCIUM 9.7 mg/dL (8.5-10.3); CARBON DIOXIDE - CO2 33 mmol/L (21-32); CHLORIDE 94 mmol/L (101-111); CHOL/HDL RATIO 3.8 (<5.0); CHOLESTEROL 135 mg/dL; CREATININE 0.6 mg/dL (0.6-1.3); GFR - MDRD 133 (>89); GLUCOSE 117 mg/dL (74-104); HDL CHOLESTEROL 36 mg/dL; LDL CHOLESTEROL,CALCULATED 83 mg/dL; LDL/HDL RATIO 2.3 (<3.6); SODIUM 133 mmol/L (135-145); TOTAL PROTEIN 7.2 g/dL (6.4-8.9); TRIGLYCERIDES 78 mg/dL (48-352); VLDL CHOLESTEROL 16 mg/dL
[2023-08-10 12:58] LABS: THYROID STIMULATING HORMONE 2.48 uIU/mL (0.34-5.60)
== END 2023-08-10 09:25 | disposition home or self-care (01) ==
LOC: LAB.N 09:24
PROVIDERS: ATTEND Physician Assistant Medical
DX: E78.5 Hyperlipidemia, unspecified (principal); R41.3 Other amnesia; Z12.5 Encounter for screening for malignant neoplasm of prostate; I10 Essential (primary) hypertension
CPT/HCPCS: 36415; 80053; 80061; 82607; 82746; 84443; 85025; G0103; 83721; 84153

== ENCOUNTER 2023-08-20 08:45 | Outpatient (CLI) | payer MEDICARE, OTHER ==
[~2023-08-20 08:45] MED LIST: GADOTERATE MEGLUMINE 10 MMOL/20 ML VIAL ONE; GADOTERATE MEGLUMINE 5 MMOL/10 ML VIAL ONE
[2023-08-20] MEDS: GADOTERATE MEGLUMINE 10 MMOL/20 ML VIAL IVP ONE (09:51)
--- NOTE | 2023-08-22 13:06 | MRI Report ---
PROCEDURE: Brain W/WO INDICATIONS: HEADACHE, MEMORY LOSS CONTRAST: CLARISCAN 20.8 ML TECHNIQUE: Noncontrast axial T1 spin echo, axial T2 fast spin echo, sagittal and axial FLAIR, coronal T2 fast sp in echo, axial gradient echo, axial diffusion and ADC through the brain. After the administration of contrast, axial and coronal T1 spin echo with fat saturation through the brain. COMPARISON: None. FINDINGS: Image quality: Excellent. CSF spaces: Basal cisterns are patent. No extra-axial fluid collections. Ventricles are normal in size and shape. Brain: No midline shift. No intracranial bleeds or masses. No abnormal intracranial enhancement. There is cerebral volume loss for age. There is periventricular white matter chronic small vessel is chemic change, including within the brainstem. Diffusion-weighted images demonstrate no acute ischem ic insults. No chronic ischemic insults. Normal intravascular flow voids are present. Skull and face: Calvarial marrow is normal in signal. Orbits appear normal. Sinuses: Sinuses and mastoids appear clear. IMPRESSION: 1.Age-related global volume loss and chronic microvascular ischemic changes. 2.No acute intracranial abnormalities. No abnormal intracranial enhancement. Reviewed by: Simeon Rader MD on 08/22/2023 1:05 PM PDT Approved by: Simeon Rader MD on 08/22/2023 1:05 PM PDT Station ID: [id number]
== END 2023-08-20 08:46 | disposition home or self-care (01) ==
LOC: DI 08:45
PROVIDERS: ATTEND Physician Assistant Medical
DX: G44.89 Other headache syndrome (principal); R41.3 Other amnesia; G31.89 Other specified degenerative diseases of nervous system; I67.82 Cerebral ischemia
CPT/HCPCS: 70553; A9575

== ENCOUNTER 2023-08-26 07:15 | Outpatient (CLI) | payer MEDICARE, OTHER ==
[2023-08-26 12:20] LABS: CALCIUM 10.1 mg/dL (8.5-10.3); CREATININE 0.6 mg/dL (0.6-1.3); POTASSIUM 3.6 mmol/L (3.5-4.5)
== END 2023-08-26 07:30 | disposition home or self-care (01) ==
LOC: LAB.N 07:15
PROVIDERS: ATTEND Physician Assistant
DX: R10.9 Unspecified abdominal pain (principal)
CPT/HCPCS: 36415; 80048

== ENCOUNTER 2023-10-21 11:19 | Day surgery (SDC) | payer MEDICARE, OTHER ==
[2023-10-21] MEDS: LACTATED RINGERS 1,000 ML IV ONE (12:29)
--- NOTE | 2023-10-21 13:33 | ANESTHESIA ---
Pre-Anesthesia VS, & Labs - Diagnosis HX POLYPS - Procedure COLONOSCOPY Vital Signs: Temp Pulse Resp BP Pulse Ox O2 Flow Rate 37.0 C 74 16 172/74 H 98 10/21/23 12:29 10/21/23 12:29 10/21/23 12:29 10/21/23 12:29 10/21/23 12:29 Height: 5 ft 10 in Weight (kg): 106.5 kg Body Mass Index: 33.7 BMI Classification: Obese - NPO >8 hours Last Fluid Intake: 929 - Lab Results Lab results reviewed: Yes Home Medications and Allergies Atorvastatin [Lipitor] 20 mg PO DAILY 07/22/22 Losartan [Cozaar] 100 mg PO DAILY 07/22/22 Sertraline [Zoloft] 50 mg PO DAILY 07/22/22 amLODIPine [Norvasc] 5 mg PO DAILY 07/22/22 cloNIDine [Catapres] 0.2 mg PO DAILY 07/22/22 hydroCHLOROthiazide [Hydrochlorothiazide] 25 mg PO DAILY 07/22/22 Atenolol [Tenormin] 1 tab PO DAILY 10/15/22 Allergies/Adverse Reactions: Allergies Allergy/AdvReac Type Severity Reaction Status Date / Time No Known Drug Allergies Allergy Verified 10/21/23 12:41 Anes History & Medical History - Anesthetic History Anesthesia Complications: reports: No previous complications, Difficult airway - Medical History Cardiovascular: reports: Hypertension, High cholesterol, Peripheral Vascular Disease, Other Pulmonary: reports: COPD Gastrointestinal: reports: None Urinary: reports: None Musculoskeletal: reports: Chronic back pain Endocrine/Autoimmune: reports: None Skin: reports: Other Smoking Status: Current every day smoker - Surgical History General: reports: Bowel surgery, Colonoscopy Cardiothoracic: reports: Vascular surgery Results - EKG Results EKG Comparison: Reviewed EKG Exam General: Alert, Oriented x3 Dental: WNL Mouth Openin Fingerbreadth Neck Mobility: Normal Mallampati classification: II Thyromental Distance: 4-6 cm Plan Anesthesia Type: Total IV Consent for Procedure(s) Verified and Reviewed: Yes Code Status: Attempt Resuscitation ASA classification: 3-Severe systemic disease Is this case an emergency?: No
[2023-10-21] MEDS ORDERED: PROPOFOL 500 MG/50 ML 500 MG/50 ML VIAL ONE (14:32)
[2023-10-21] MEDS ORDERED: LIDOCAINE-PF 2% 10 ML AMP SUBQ ONE (15:07)
[2023-10-21] MEDS: LACTATED RINGERS 700 ML IV ONE (15:43)
[2023-10-21 15:54] VITALS: O2SAT 95
[2023-10-21 16:14] VITALS: BP 144/80
--- NOTE | 2023-10-21 16:17 | ANESTHESIA POST OP EVALUATION ---
Anesthesia Post Eval - Post Anesthesia Eval Vitals: Last Vital Signs Temp 36.1 C L 10/21/23 16:05 Pulse 80 10/21/23 16:05 Resp 16 10/21/23 16:05 BP 144/80 H 10/21/23 16:05 Pulse Ox 95 10/21/23 16:05 O2 Flow Rate CV Function Including HR & BP: Stable Pain Control: Satisfactory Nausea & Vomiting: Negative Mental Status: Baseline Respiratory Status: Airway Patent Hydration Status: Satisfactory Anesthesia Complications: None
== END 2023-10-21 11:20 | disposition home or self-care (01) ==
LOC: SDS 11:19
PROVIDERS: ATTEND Surgery
PROC: 0DBM8ZX Excision of Descending Colon, Via Natural or Artificial Opening Endoscopic, Diagnostic (ICD-10-PCS; 2023-10-21)
PROC: 0DBK8ZX Excision of Ascending Colon, Via Natural or Artificial Opening Endoscopic, Diagnostic (ICD-10-PCS; principal; 2023-10-21 14:00)
DX: Z12.11 Encounter for screening for malignant neoplasm of colon (principal); D12.2 Benign neoplasm of ascending colon; D12.4 Benign neoplasm of descending colon; J44.9 Chronic obstructive pulmonary disease, unspecified; F17.200 Nicotine dependence, unspecified, uncomplicated; I10 Essential (primary) hypertension; E66.9 Obesity, unspecified; Z68.33 Body mass index [BMI] 33.0-33.9, adult; Z80.0 Family history of malignant neoplasm of digestive organs
CPT/HCPCS: 45380; 45385; J7120